=== PATIENT | male | born 1995 | race Caucasian/White ===

== ENCOUNTER 2020-08-16 16:20 | Emergency (ER) | payer SELFPAY ==
[~2020-08-16] VITALS: Ht 175.3 cm; Wt 99.8 kg
[2020-08-16 16:38] VITALS: BP 151/76
--- NOTE | 2020-08-16 18:12 | NUR ---
Patient discharged with v/s stable. Written and verbal after care instructions given and explained. Patient alert, oriented and verbalized understanding of instructions. Ambulatory with steady gait. All questions addressed prior to discharge. ID band removed. Patient advised to follow up with PMD. Rx of loratadine, benadryl, andprednisone given. Patient educated on indication of medication including possible reaction and side effects. Opportunity to ask questions provided and answered.
== END 2020-08-16 18:12 | disposition home or self-care (01) ==
LOC: MED 16:20
DX: K14.6 Glossodynia (principal); R03.0 Elevated blood-pressure reading, without diagnosis of hypertension; F17.210 Nicotine dependence, cigarettes, uncomplicated
CPT/HCPCS: 99283

== ENCOUNTER 2021-09-13 10:45 | Emergency (ER) | payer OTHER ==
[~2021-09-13] VITALS: Ht 180.3 cm; Wt 99.8 kg
[2021-09-13 11:16] VITALS: BP 109/71
[2021-09-13] MEDS ORDERED: DOCU-300 PO (12:16)
[2021-09-13 12:53] VITALS: BP 100/70
--- NOTE | 2021-09-13 12:53 | NUR ---
Patient discharged with v/s stable. Written and verbal after care instructions given and explained. Patient alert, oriented and verbalized understanding of instructions. Ambulatory with steady gait. All questions addressed prior to discharge. ID band removed. Patient advised to follow up with PMD. Rx of COLACE given. Patient educated on indication of medication including possible reaction and side effects. Opportunity to ask questions provided and answered.
== END 2021-09-13 12:53 | disposition home or self-care (01) ==
LOC: MED 10:45
DX: K59.00 Constipation, unspecified (principal); K64.9 Unspecified hemorrhoids
CPT/HCPCS: 99282